=== PATIENT | male | born 1950 | race Caucasian/White ===

== ENCOUNTER 2018-03-22 13:06 | Emergency (ER) | payer MEDICARE, SELFPAY ==
[2018-03-22 13:16] VITALS: BP 140/89; PULSE 107; RESP 17; TEMP 36.4; O2SAT 97; BMI 25.9
--- NOTE | 2018-03-22 13:17 | DI.RAD.S_ITS ---
PROCEDURE: XR KNEE LT 1TO2V INDICATIONS: knee pain, s/ partial knee yesterday TECHNIQUE: 2 views of the knee were acquired. COMPARISON: None. FINDINGS: Bones: No fractures or dislocations. No suspicious bony lesions. 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 Screw tracks noted in the distal femur and proximal tibia. Soft tissues: Large anterior joint effusion is noted. Vascular calcifications noted. IMPRESSION: 1. Expected postsurgical change for medial unicondylar arthroplasty. 2. Nonspecific joint effusion. Dictated by: Judit Shah MD, PhD on 03/22/2018 at 14:31 Approved by: Judit Shah MD, PhD on 03/22/2018 at 14:32
--- NOTE | 2018-03-22 15:52 | ED.EXTPRO ---
HPI - Extremity Problem General Chief complaint: Extremity Problem,Nontraumatic Stated complaint: LEFT KNEE SWOLLEN, PAINFUL, HAD SURGERY YESTERDAY Time Seen by Provider: 03/22/18 13:17 Source: patient and family Mode of arrival: ambulatory Limitations: no limitations History of Present Illness HPI Narrative: A 68-year-old male, nonsmoker presents as lateral transfer from other emergency department for evaluation of postoperative pain. The patient had left knee surgery by Dr. Peralta yesterday at an outside facility and went home with prescriptions for pain control. The patient historically has difficulty taking pain medications and reports multiple allergies which are thought to be more likely intolerance of medication and include nausea and vomiting. Furthermore the patient is a diabetic and his sugars have been slightly elevated in the 270 range. He denies any fever or chills nor bleeding. He denies any significant swelling or redness of his left knee but admits to significant pain. He presented to outside emergency department and had multiple labs and x-ray performed. There was consultation with Dr. Peralta whom recommended transfer to our emergency department as opposed to direct admit as it seemed unlikely the patient would warrant admission. Patient denies any new injury or fall and states he has been doing his best to take the medications as directed. He denies any chest pain nor difficulty in breathing MD Complaint: extremity pain Onset (ago): hour(s) Pain Consistency: constant Quality: stabbing and aching Radiation: proximal Relieving factors: nothing Exacerbating factors: range of motion, weight bearing and walking Associated symptoms: denies other symptoms Context: recent surgery/procedure Related Data Home Medications Medication Instructions Recorded Confirmed Vitamin C 1 tab PO DAILY 03/22/18 03/22/18 amitriptyline 25 mg PO QPM 03/22/18 03/22/18 aspirin 81 mg PO DAILY 03/22/18 03/22/18 atorvastatin 40 mg PO QPM 03/22/18 03/22/18 gabapentin 100 mg PO BID PRN 03/22/18 03/22/18 hydrochlorothiazide 25 mg PO DAILY 03/22/18 03/22/18 hydroxyzine pamoate 2 cap PO PRN PRN 03/22/18 03/22/18 metformin 1,000 mg PO BID 03/22/18 03/22/18 omeprazole 20 mg PO BID 03/22/18 03/22/18 oxycodone 1 dose PO DIRECTED 03/22/18 03/22/18 tizanidine 4 mg PO QPM 03/22/18 03/22/18 Previous Rx's Medication Instructions Recorded ketorolac 10 mg PO Q6H PRN #12 tab 03/22/18 Allergies Allergy/AdvReac Type Severity Reaction Status Date / Time hydromorphone [From Dilaudid] AdvReac Verified 03/22/18 13:16 morphine AdvReac Verified 03/22/18 13:16 Review of Systems Review of Systems All systems reviewed & are unremarkable except as noted in HPI and below Constitutional Denies chills, Denies fever(s), Denies lethargy and Denies weakness Eyes Denies change in vision, Denies eye discharge, Denies irritation and Denies loss of vision ENT Ears, Nose, Mouth, and Throat: Denies change in voice, Denies neck pain and Denies sore throat Cardiovascular Denies chest pain, Denies irregular heart rhythm, Denies lightheadedness, Denies palpitations, Denies dyspnea, Denies dyspnea on exertion and Denies orthopnea Respiratory Denies cough, Denies dyspnea, Denies dyspnea on exertion and Denies wheezing Gastrointestinal Gastrointestinal: Denies abdominal pain, Denies change in bowel habits, Denies diarrhea, Denies nausea and Denies vomiting Genitourinary Denies hematuria, Denies flank pain, Denies urinary incontinence and Denies urinary urgency Musculoskeletal Reports limited range of motion and Denies neck pain Integumentary/Breasts Denies pruritus, Denies erythema, Denies rash and Denies wounds Neurologic Denies confusion, Denies loss of vision and Denies weakness Psychiatric Denies anxiety, Denies confusion, Denies depression, Denies homicidal ideation and Denies suicidal ideation Endocrine Denies palpitations Hematologic/Lymphatic Denies easy bruising Allergic/Immunologic Denies wheezing PFSH Social History Smoking Status: Never smoker Exam Narrative Exam Narrative: GENERAL: 68-year-old male, resting comfortably but obviously in pain with motion of left knee HEAD: Atraumatic. Normocephalic. No temporal or scalp tenderness. EYES: Pupils equal round and reactive. Extraocular motions intact. No scleral icterus. No injection or drainage. ENT: Nose without bleeding, purulent drainage or septal hematoma. Throat without erythema, tonsillar hypertrophy or exudate. Uvula midline. Airway patent. NECK: Trachea midline. No JVD or lymphadenopathy. Supple, nontender, no meningeal signs. CARDIOVASCULAR: Regular rate and rhythm without murmurs, gallops, or rubs. RESPIRATORY: Clear to auscultation. Breath sounds equal bilaterally. No wheezes, rales, or rhonchi. GASTROINTESTINAL: Abdomen soft, non-tender, nondistended. No hepato-splenomegaly, or palpable masses. No guarding. EXTREMITIES: Left knee is quite tender to palpation without any significant or unexpected erythema, swelling or warmth. There is very minimal effusion and no drainage on surgical dressing. There is tenderness to palpation on the proximal aspect of the knee but no significant pinpoint tenderness and no tenderness along distribution of vasculature of extremity to suggest DVT. BACK: Nontender without deformity or crepitance. No flank tenderness. NEURO: AOx3. SKIN: No rash or erythema. Initial Vital Signs Initial Vital Signs: Vital Signs Temperature 97.5 F L 03/22/18 13:16 Pulse Rate 107 H 03/22/18 13:16 Respiratory Rate 17 03/22/18 13:16 Blood Pressure 140/89 03/22/18 13:16 Pulse Oximetry 97 03/22/18 13:16 Course Orders Ordered: ED Orders 03/22/18 13:17 XR knee LT 1to2V Stat Discontinued Medications Hydromorphone HCl (Dilaudid) 1 mg IV NOW ONE Stop: 03/22/18 16:01 Last Admin: 03/22/18 16:11 Dose: 1 mg Ondansetron HCl (Zofran) 4 mg IV NOW ONE Stop: 03/22/18 16:01 Last Admin: 03/22/18 16:11 Dose: 4 mg Consultations Consultation #1: Consult with Dr. Peralta prior to patient even arriving, he recommends repeat x-ray in the administration of some pain meds and call to him upon receipt of imaging. Consultation #2: Dr. Peralta re-contacted upon receipt of x-ray, he has reviewed the x-ray and is in agreement with radiologist, stating there is no obvious, concerning finding. We discussed the patient is rather benign physical exam and the absence of significant swelling, effusion, redness, warmth, drainage or other significant findings. His recommendation is to have the patient stop aspirin, start a few days of Toradol and continue to take oxycodone for breakthrough pain. Vital Signs - 8 hr 03/22/18 13:16 03/22/18 16:34 Temperature 97.5 F L Pulse Rate 107 H 87 Respiratory Rate 17 16 Blood Pressure 140/89 Blood Pressure [Right Arm] 188/98 H Pulse Oximetry 97 96 MDM - Extremity (Nontraumatic) Imaging Data Knee Xray: Radiologist's impression: [address] [address] XRay Report Signed Patient: IQRA SIN TMR#: [id number] : 1950Acct:[id number] Age/Sex: 68 / MDate of Service: 03/22/18 Loc: ED Accession Number: [id number] Procedure: XR knee LT 1to2V Ordering Provider: Checo Aragon D.O. PROCEDURE: XR KNEE LT 1TO2V INDICATIONS: knee pain, s/ partial knee yesterday TECHNIQUE: 2 views of the knee were acquired. COMPARISON: None. FINDINGS: Bones: No fractures or dislocations. No suspicious bony lesions. 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 Screw tracks noted in the distal femur and proximal tibia. Soft tissues: Large anterior joint effusion is noted. Vascular calcifications noted. IMPRESSION: 1. Expected postsurgical change for medial unicondylar arthroplasty. 2. Nonspecific joint effusion. Dictated by: Judit Shah MD, PhD on 03/22/2018 at 14:31 Approved by: Judit Shah MD, PhD on 03/22/2018 at 14:32 [facility] Narrative Medical decision making narrative: Postoperative pain evaluated and multiple diagnoses considered including postoperative infection, hematoma, clot versus other including fracture. These alternate, or concerning diagnoses thought less likely given findings of physical exam, patient reported symptoms and images Discharge Plan Departure Patient Disposition: Home Clinical Impression: Acute knee pain Discharge Date/Time: 03/22/18 16:44 Interventions: ED Discharge Assessment Last Done: 03/22/18 16:42 Instructions: DI for Knee Pain Activity Restrictions/Additional Instructions: *You have been diagnosed with postsurgical left knee pain *What to do: *Take medications as directed: Stop taking her aspirin. Filled the prescription for Toradol 10 mg every 8 hr and take the next 3 days. Continue taking your oxycodone for breakthrough pain. *Follow up with your orthopedist as previously instructed, call for an appointment. Let them know you were seen in the Emergency Department and that we ask that you be seen in follow up *Return to ER if you should have any new, worsening or concerning symptoms, such as [worsening pain, fever, chills, vomiting, or other bothersome symptoms ] Prescriptions: New ketorolac 10 mg tablet 10 mg PO Q6H PRN (Reason: pain) Qty: 12 RF: 0 No Action atorvastatin 40 mg tablet 40 mg PO QPM RF: 0 tizanidine 4 mg tablet 4 mg PO QPM RF: 0 amitriptyline 25 mg tablet 25 mg PO QPM RF: 0 metformin 1,000 mg tablet 1,000 mg PO BID RF: 0 omeprazole 20 mg capsule,delayed release(DR/EC) 20 mg PO BID RF: 0 hydrochlorothiazide 25 mg tablet 25 mg PO DAILY RF: 0 gabapentin 100 mg capsule 100 mg PO BID PRN (Reason: pain) RF: 0 oxycodone 5 mg tablet 1 dose PO DIRECTED RF: 0 hydroxyzine pamoate 25 mg capsule 2 cap PO PRN PRN (Reason: unknown) RF: 0 aspirin 81 mg Tablet,Delayed Release (Dr/Ec) 81 mg PO DAILY RF: 0 Vitamin C 1 tab PO DAILY RF: 0 Referrals: Kevin Peralta MD [Physician] -
[2018-03-22] MEDS: ONDANSETRON 4 MG/2 ML INJ IV (16:11)
[2018-03-22] MEDS: HYDROMORPHONE 1 MG INJ IV (16:11)
[2018-03-22 16:34] VITALS: BP 188/98; PULSE 87; RESP 16; O2SAT 96
--- NOTE | 2018-03-22 19:41 | ED_ITS ---
HPI - Extremity Problem General Chief complaint: Extremity Problem,Nontraumatic Stated complaint: LEFT KNEE SWOLLEN, PAINFUL, HAD SURGERY YESTERDAY Time Seen by Provider: 03/22/18 13:17 Source: patient and family Mode of arrival: ambulatory Limitations: no limitations History of Present Illness HPI Narrative: A 68-year-old male, nonsmoker presents as lateral transfer from other emergency department for evaluation of postoperative pain. The patient had left knee surgery by Dr. Peralta yesterday at an outside facility and went home with prescriptions for pain control. The patient historically has difficulty taking pain medications and reports multiple allergies which are thought to be more likely intolerance of medication and include nausea and vomiting. Furthermore the patient is a diabetic and his sugars have been slightly elevated in the 270 range. He denies any fever or chills nor bleeding. He denies any significant swelling or redness of his left knee but admits to significant pain. He presented to outside emergency department and had multiple labs and x-ray performed. There was consultation with Dr. Peralta whom recommended transfer to our emergency department as opposed to direct admit as it seemed unlikely the patient would warrant admission. Patient denies any new injury or fall and states he has been doing his best to take the medications as directed. He denies any chest pain nor difficulty in breathing MD Complaint: extremity pain Onset (ago): hour(s) Pain Consistency: constant Quality: stabbing and aching Radiation: proximal Relieving factors: nothing Exacerbating factors: range of motion, weight bearing and walking Associated symptoms: denies other symptoms Context: recent surgery/procedure Related Data Home Medications Medication Instructions Recorded Confirmed Vitamin C 1 tab PO DAILY 03/22/18 03/22/18 amitriptyline 25 mg PO QPM 03/22/18 03/22/18 aspirin 81 mg PO DAILY 03/22/18 03/22/18 atorvastatin 40 mg PO QPM 03/22/18 03/22/18 gabapentin 100 mg PO BID PRN 03/22/18 03/22/18 hydrochlorothiazide 25 mg PO DAILY 03/22/18 03/22/18 hydroxyzine pamoate 2 cap PO PRN PRN 03/22/18 03/22/18 metformin 1,000 mg PO BID 03/22/18 03/22/18 omeprazole 20 mg PO BID 03/22/18 03/22/18 oxycodone 1 dose PO DIRECTED 03/22/18 03/22/18 tizanidine 4 mg PO QPM 03/22/18 03/22/18 Previous Rx's Medication Instructions Recorded ketorolac 10 mg PO Q6H PRN #12 tab 03/22/18 Allergies Allergy/AdvReac Type Severity Reaction Status Date / Time hydromorphone [From Dilaudid] AdvReac Verified 03/22/18 13:16 morphine AdvReac Verified 03/22/18 13:16 Review of Systems Review of Systems All systems reviewed & are unremarkable except as noted in HPI and below Constitutional Denies chills, Denies fever(s), Denies lethargy and Denies weakness Eyes Denies change in vision, Denies eye discharge, Denies irritation and Denies loss of vision ENT Ears, Nose, Mouth, and Throat: Denies change in voice, Denies neck pain and Denies sore throat Cardiovascular Denies chest pain, Denies irregular heart rhythm, Denies lightheadedness, Denies palpitations, Denies dyspnea, Denies dyspnea on exertion and Denies orthopnea Respiratory Denies cough, Denies dyspnea, Denies dyspnea on exertion and Denies wheezing Gastrointestinal Gastrointestinal: Denies abdominal pain, Denies change in bowel habits, Denies diarrhea, Denies nausea and Denies vomiting Genitourinary Denies hematuria, Denies flank pain, Denies urinary incontinence and Denies urinary urgency Musculoskeletal Reports limited range of motion and Denies neck pain Integumentary/Breasts Denies pruritus, Denies erythema, Denies rash and Denies wounds Neurologic Denies confusion, Denies loss of vision and Denies weakness Psychiatric Denies anxiety, Denies confusion, Denies depression, Denies homicidal ideation and Denies suicidal ideation Endocrine Denies palpitations Hematologic/Lymphatic Denies easy bruising Allergic/Immunologic Denies wheezing PFSH Social History Smoking Status: Never smoker Exam Narrative Exam Narrative: GENERAL: 68-year-old male, resting comfortably but obviously in pain with motion of left knee HEAD: Atraumatic. Normocephalic. No temporal or scalp tenderness. EYES: Pupils equal round and reactive. Extraocular motions intact. No scleral icterus. No injection or drainage. ENT: Nose without bleeding, purulent drainage or septal hematoma. Throat without erythema, tonsillar hypertrophy or exudate. Uvula midline. Airway patent. NECK: Trachea midline. No JVD or lymphadenopathy. Supple, nontender, no meningeal signs. CARDIOVASCULAR: Regular rate and rhythm without murmurs, gallops, or rubs. RESPIRATORY: Clear to auscultation. Breath sounds equal bilaterally. No wheezes , rales, or rhonchi. GASTROINTESTINAL: Abdomen soft, non-tender, nondistended. No hepato-splenomegaly , or palpable masses. No guarding. EXTREMITIES: Left knee is quite tender to palpation without any significant or unexpected erythema, swelling or warmth. There is very minimal effusion and no drainage on surgical dressing. There is tenderness to palpation on the proximal aspect of the knee but no significant pinpoint tenderness and no tenderness along distribution of vasculature of extremity to suggest DVT. BACK: Nontender without deformity or crepitance. No flank tenderness. NEURO: AOx3. SKIN: No rash or erythema. Initial Vital Signs Initial Vital Signs: Vital Signs Temperature 97.5 F L 03/22/18 13:16 Pulse Rate 107 H 03/22/18 13:16 Respiratory Rate 17 03/22/18 13:16 Blood Pressure 140/89 03/22/18 13:16 Pulse Oximetry 97 03/22/18 13:16 Course Orders Ordered: ED Orders 03/22/18 13:17 XR knee LT 1to2V Stat Discontinued Medications Hydromorphone HCl (Dilaudid) 1 mg IV NOW ONE Stop: 03/22/18 16:01 Last Admin: 03/22/18 16:11 Dose: 1 mg Ondansetron HCl (Zofran) 4 mg IV NOW ONE Stop: 03/22/18 16:01 Last Admin: 03/22/18 16:11 Dose: 4 mg Consultations Consultation #1: Consult with Dr. Pearlta prior to patient even arriving, he recommends repeat x-ray in the administration of some pain meds and call to him upon receipt of imaging. Consultation #2: Dr. Peralta re-contacted upon receipt of x-ray, he has reviewed the x-ray and is in agreement with radiologist, stating there is no obvious, concerning finding. We discussed the patient is rather benign physical exam and the absence of significant swelling, effusion, redness, warmth, drainage or other significant findings. His recommendation is to have the patient stop aspirin, start a few days of Toradol and continue to take oxycodone for breakthrough pain. Vital Signs - 8 hr 03/22/18 13:16 03/22/18 16:34 Temperature 97.5 F L Pulse Rate 107 H 87 Respiratory Rate 17 16 Blood Pressure 140/89 Blood Pressure [Right Arm] 188/98 H Pulse Oximetry 97 96 MDM - Extremity (Nontraumatic) Imaging Data Knee Xray: Radiologist's impression: [address] [address] XRay Report Signed Patient: IQRA SIN TMR#: [id number] : 1950Acct:[id number] Age/Sex: 68 / MDate of Service: 03/22/18 Loc: ED Accession Number: [id number] Procedure: XR knee LT 1to2V Ordering Provider: Checo Aragon D.O. PROCEDURE: XR KNEE LT 1TO2V INDICATIONS: knee pain, s/ partial knee yesterday TECHNIQUE: 2 views of the knee were acquired. COMPARISON: None. FINDINGS: Bones: No fractures or dislocations. No suspicious bony lesions. 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 Screw tracks noted in the distal femur and proximal tibia. Soft tissues: Large anterior joint effusion is noted. Vascular calcifications noted. IMPRESSION: 1. Expected postsurgical change for medial unicondylar arthroplasty. 2. Nonspecific joint effusion. Dictated by: Judit Shah MD, PhD on 03/22/2018 at 14:31 Approved by: Judit Shah MD, PhD on 03/22/2018 at 14:32 [facility] Narrative Medical decision making narrative: Postoperative pain evaluated and multiple diagnoses considered including postoperative infection, hematoma, clot versus other including fracture. These alternate, or concerning diagnoses thought less likely given findings of physical exam, patient reported symptoms and images Discharge Plan Departure Patient Disposition: Home Clinical Impression: Acute knee pain Discharge Date/Time: 03/22/18 16:44 Interventions: ED Discharge Assessment Last Done: 03/22/18 16:42 Instructions: DI for Knee Pain Activity Restrictions/Additional Instructions: *You have been diagnosed with postsurgical left knee pain *What to do: *Take medications as directed: Stop taking her aspirin. Filled the prescription for Toradol 10 mg every 8 hr and take the next 3 days. Continue taking your oxycodone for breakthrough pain. *Follow up with your orthopedist as previously instructed, call for an appointment. Let them know you were seen in the Emergency Department and that we ask that you be seen in follow up *Return to ER if you should have any new, worsening or concerning symptoms , such as [worsening pain, fever, chills, vomiting, or other bothersome symptoms ] Prescriptions: New ketorolac 10 mg tablet 10 mg PO Q6H PRN (Reason: pain) Qty: 12 RF: 0 No Action atorvastatin 40 mg tablet 40 mg PO QPM RF: 0 tizanidine 4 mg tablet 4 mg PO QPM RF: 0 amitriptyline 25 mg tablet 25 mg PO QPM RF: 0 metformin 1,000 mg tablet 1,000 mg PO BID RF: 0 omeprazole 20 mg capsule,delayed release(DR/EC) 20 mg PO BID RF: 0 hydrochlorothiazide 25 mg tablet 25 mg PO DAILY RF: 0 gabapentin 100 mg capsule 100 mg PO BID PRN (Reason: pain) RF: 0 oxycodone 5 mg tablet 1 dose PO DIRECTED RF: 0 hydroxyzine pamoate 25 mg capsule 2 cap PO PRN PRN (Reason: unknown) RF: 0 aspirin 81 mg Tablet,Delayed Release (Dr/Ec) 81 mg PO DAILY RF: 0 Vitamin C 1 tab PO DAILY RF: 0 Referrals: Kevin Peralta MD [Physician] -
== END 2018-03-22 16:44 | disposition home or self-care (01) ==
PROVIDERS: Emergency Provider Emergency Medicine; PCP Internal Medicine
DX: M25.562 Pain in left knee (principal); G89.18 Other acute postprocedural pain
CPT/HCPCS: 73560; 96374; 96375; 99282; 99284; J1170; J2405